=== PATIENT | female | born 1990 | race Caucasian/White ===

== ENCOUNTER 2017-01-05 14:31 | Emergency (ER) | payer OTHER ==
[2017-01-05] MEDS ORDERED: HYDROmorphone 1 MG/ML 1 ML SYRINGE IVP STA (14:45)
[2017-01-05] MEDS ORDERED: LORazepam 2 MG/ML SYRINGE IV STA (14:45)
[2017-01-05] MEDS ORDERED: SODIUM CHLORIDE 0.9% 1,000 ML IV STA (14:46)
[2017-01-05] MEDS ORDERED: ceFAZolin 1,000 MG in DEXTROSE/WATER 1 50ML.BAG IVPB STA (14:50)
[2017-01-05 14:54] VITALS: RESP 18
--- NOTE | 2017-01-05 14:56 | ED ---
Wound/Laceration HPI - General Chief Complaint: Wound/Laceration Stated Complaint: laceration [facility] Time Seen by Provider: 01/05/17 14:33 Source: patient, RN notes reviewed Mode of arrival: wheelchair Limitations: no limitations - History of Present Illness Initial Comments: 26-year-old female presents to the emergency department with a chief complaint of right hand laceration that happened at work. 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 Patient's last tetanus was in the last 5 years. Patient states that her pain is moderate. Patient states that she does not have full sensation of the hand. Patient states that she was brought here immediately following the injury. Patient states about 20 minutes since the injury. Patient denies any other health concerns.Patient denies any recent fever, chills, shortness of breath, chest pain, back pain, abdominal pain , nausea vomiting, numbness or tingling, dysuria or hematuria, constipation or diarrhea, headaches or visual changes, or any other current symptoms. - Related Data Home Medications Medication Instructions Recorded Confirmed No Known Home Medications [No 01/05/17 01/05/17 Known Home Medications] Allergies Allergy/AdvReac Type Severity Reaction Status Date / Time No Known Allergies Allergy Verified 01/05/17 14:46 Review of Systems ROS Statement: Those systems with pertinent positive or pertinent negative responses have been documented in the HPI. ROS Other: All systems not noted in ROS Statement are negative. Past Medical History Past Medical History: Unable to Obtain History of Any Multi-Drug Resistant Organisms: None Reported Past Surgical History: Unable to Obtain Past Psychological History: No Psychological Hx Reported Smoking Status: Current every day smoker Past Alcohol Use History: None Reported Past Drug Use History: None Reported General Exam - General Exam Comments Initial Comments: General: The patient is awake and alert, in no distress, and does not appear acutely ill. Neck: The neck is supple, there is no tenderness. Cardiovascular: There is a regular rate and rhythm. No murmur, rub or gallop is appreciated. Respiratory: Lungs are clear to auscultation, respirations are non-labored, breath sounds are equal. No wheezes, stridor, rales, or rhonchi. Musculoskeletal: Patient has extensive laceration across the first second third and fourth digits to the right hand. There does appear to be loss of sensation as well as a cap refill to the first and second digit that does appear to be partially amputated to complete. second digit cold to touch. Patient does appear to have pressure sensation to the fourth digit however the digit is slow to refill. 3rd digit has extensive laceration and dislocation with gross sensation intact and slow cap refill. Neurological: CN II-XII intact, There are no obvious motor or sensory deficits. Coordination appears grossly intact. Speech is normal. Skin: Skin is warm and dry and no rashes or lesions are noted. Psychiatric: Normal mood and affect. Limitations: no limitations Course Vital Signs 01/05/17 14:35 Temperature 98.0 F Pulse Rate 99 Respiratory 18 Rate Blood Pressure 129/84 O2 Sat by Pulse 100 Oximetry - Reevaluation(s) Reevaluation #1: 01/05/17 15:07 At this time we have started to contact [facility] for a transfer Medical Decision Making - Medical Decision Making 26-year-old female presents emergency Department chief complaint of right hand finger laceration with open comminuted fractures and dislocations with loss of sensation and capillary refill to the hand. At this time this is a emergency for the patient's fingers. [facility] was contacted regarding the transfer and they do accept the transfer. Dr. Cooper was discussed with about the case. At this time we will send the patient by ambulance. She was given antibiotics. Her tetanus is up-to-date. The patient is right-handed. We did inform her of expected outcome. The patient stated that she understood and all questions have been answered. She will go to [facility] for further care. - Radiology Data Radiology results: report reviewed, image reviewed Disposition Clinical Impression: Laceration of right hand involving tendon, Dislocation of right index finger, Amputation finger-complicated, Right handed Disposition: OTHER INSTITUTION NOT DEFINED Condition: Fair Time of Disposition: 15:28 - Out of Hospital Transfer - Req. Specs Out of Hospital Transfer - Requested Specifics: Other Emergency Center ([facility])
--- NOTE | 2017-01-05 15:12 | XR ---
EXAMINATION TYPE: XR hand complete RT DATE OF EXAM: 01/05/2017 3:03 PM CLINICAL HISTORY: Hand injury with pain. TECHNIQUE: Frontal, lateral and oblique images of the right hand are obtained. COMPARISON: None. FINDINGS: There is acute comminuted distracted fracture through mid shaft of the first distal phalanx . There is open acute comminuted displaced fracture through the proximal diaphysis of the second proxim al phalanx. There is open and displaced intra-articular comminuted fracture through the distal meta-epiphysis of the third proximal phalanx. There is acute comminuted intra-articular likely open fracture through the distal meta-epiphysis of t he fourth middle phalanx. Associated soft tissue swelling is seen. No radiodense foreign body is clearly identified. IMPRESSION: There are acute comminuted displaced open fractures through first through fourth fingers in the right hand as detailed above. (Initial encounter open type post traumatic fracture)
[2017-01-05 15:30] LABS: Basophils # (A) 0.1 k/uL (0-0.2); Basophils % (A) 1 %; CH 30.7; Eosinophils # (A) 0.4 k/uL (0-0.7); Eosinophils % (A) 4 %; HCT 38.9 % (34.0-46.0); HDW 2.24; HGB 13.3 gm/dL (11.4-16.0); Luc % (Auto) 3; Lymphocytes # (A) 4.3 k/uL (1.0-4.8); Lymphocytes % (A) 39 %; MCH 30.8 pg (25.0-35.0); MCV 90.6 fL (80.0-100.0); Mean Platelet Volume 8.4; Monocytes # (A) 0.6 k/uL (0-1.0); Monocytes % (A) 6 %; Neutrophils # (A) 5.2 k/uL (1.3-7.7); Neutrophils % (A) 48 %; RDW 13.2 % (11.5-15.5); WBC 10.8 k/uL (3.8-10.6); WBC (Perox) 10.48
[2017-01-05 15:43] VITALS: BP 109/68; PULSE 89; TEMP 98.1
[2017-01-05 15:45] LABS: ALT 26 U/L (9-52); AST 21 U/L (14-36); Alkaline Phosphatase 43 U/L (38-126); Anion Gap 10 mmol/L; Blood Urea Nitrogen 19 mg/dL (7-17); Calcium 9.4 mg/dL (8.4-10.2); Carbon Dioxide 23 mmol/L (22-30); Chloride 106 mmol/L (98-107); Glucose 130 mg/dL (74-99); Non-African American GFR(MDRD) >60 (>60 ml/min/1.73 sqM); Potassium 3.6 mmol/L (3.5-5.1); Sodium 139 mmol/L (137-145); Total Bilirubin 0.5 mg/dL (0.2-1.3); Total Protein 7.7 g/dL (6.3-8.2)
== END 2017-01-05 15:47 | disposition other institution (70) ==
LOC: EC 14:31
DX: S62.521B Displaced fracture of distal phalanx of right thumb, initial encounter for open fracture (principal); S62.610B Displaced fracture of proximal phalanx of right index finger, initial encounter for open fracture; S62.612B Displaced fracture of proximal phalanx of right middle finger, initial encounter for open fracture; S62.624B Displaced fracture of middle phalanx of right ring finger, initial encounter for open fracture; S68.011A Complete traumatic metacarpophalangeal amputation of right thumb, initial encounter; S68.110A Complete traumatic metacarpophalangeal amputation of right index finger, initial encounter; F17.200 Nicotine dependence, unspecified, uncomplicated; W45.8XXA Other foreign body or object entering through skin, initial encounter; Y92.89 Other specified places as the place of occurrence of the external cause; Y99.0 Civilian activity done for income or pay
CPT/HCPCS: 36415; 86900; 86901; 80053; 85025; 86850; 73130; 99284; J2060; J1170; J0690

== ENCOUNTER → 2019-06-22 | Outpatient (CLI) | payer SELFPAY ==
--- NOTE | 2019-06-23 10:28 | USB ---
Reason for exam: clinical finding. Indicated problem(s): pain in both breasts. Physical Findings: Nurse Summary: bilateral redness, warmth and tenderness noted on exam. Bilateral nodularity. All soft, movable. Right breast more noted redness than left (nurse ts). US Breast BILAT Right complete breast ultrasound includes all four quadrants, the retroareolar region and axilla. Finding demonstrates a 8 x 5 x 7mm oval, cystic lesion at 11 o'clock. Left complete breast ultrasound includes all four quadrants, the retroareolar region and axilla. Finding demonstrates no cystic or solid lesion seen. Extremely dense breast tissue bilaterally. No abscess/fluid collection. These results were verbally communicated with the patient and result sheet given to the patient on 06/22/19. ASSESSMENT: Benign, BI-RAD 2 RECOMMENDATION: Surgical consultation of both breasts. Manage patient on a clinical basis. Breast specialist consultation recommended for additional exam, determine if further work up such as punch biopsy would be needed. Alberto at Dr. Nolasco's office called 06/22/19 at 15:55, given update on patient recommendation for surgical consult. Patient states she would like to complete course of antibiotics and see Dr. Nolasco before seeing a surgeon at this time. Alberto made aware that Dr. Pittman stated that often times surgeons would like to have the patient to have completed a course of antibiotics prior to seeing them anyway regarding cases as such. Alberto made aware the patient states she has an appointment with Dr. Nolasco in a couple weeks and will follow up with her at this time. Patient told to contact Dr. Nolasco if symptoms get worse or she has any other problems in the meantime.
== END | disposition home or self-care (01) ==
LOC: RADUSWWP 14:44
PROVIDERS: ATTEND Obstetrics & Gynecology Obstetrics
DX: N64.4 Mastodynia (principal)

== ENCOUNTER 2019-11-09 11:52 | Inpatient (IN) | payer BC ==
[2019-11-09] MEDS ORDERED: LIDOCAINE 0.5% (PF) 5 MG/ML (50 ML SDV) SQ PRN (12:55)
[2019-11-09] MEDS ORDERED: TERBUTALINE 1 MG/ML VIAL SQ PRN (12:55)
[2019-11-09] MEDS ORDERED: OXYTOCIN 10 UNIT/ML 1 ML VIAL IM PRN (12:55)
[2019-11-09] MEDS ORDERED: CARBOPROST TROMETHAMINE 250 MCG/ML 1 ML AMP IM PRN (12:55)
[2019-11-09] MEDS ORDERED: METHYLERGONOVINE 0.2 MG/ML 1 ML AMP IM PRN (12:55)
[2019-11-09] MEDS: OXYTOCIN 30 UNITS/500 ML NS 30 UNIT in SALINE 1 500ML.BAG IV SCH (13:28)
[2019-11-09] MEDS: LACTATED RINGERS 1,000 ML IV SCH ×2 (13:28→16:45)
[2019-11-09 13:43] LABS: Basophils % (A) 0 %; Eosinophils # (A) 0.1 k/uL (0-0.7); Eosinophils % (A) 2 %; HCT 37.3 % (34.0-46.0); HGB 12.7 gm/dL (11.4-16.0); Lymphocytes # (A) 1.8 k/uL (1.0-4.8); Lymphocytes % (A) 23 %; MCH 30.5 pg (25.0-35.0); MCHC 34.1 g/dL (31.0-37.0); MCV 89.5 fL (80.0-100.0); Mean Platelet Volume 10.4; Monocytes # (A) 0.6 k/uL (0-1.0); Monocytes % (A) 7 %; Neutrophils # (A) 4.9 k/uL (1.3-7.7); Neutrophils % (A) 64 %; Platelet Count 152 k/uL (150-450); RBC 4.17 m/uL (3.80-5.40); WBC 7.6 k/uL (3.8-10.6)
--- NOTE | 2019-11-09 16:15 | P.HPOB ---
History of Present Illness H&P Date: 11/09/19 Chief Complaint: IUP at 39 and 3/sevenths weeks, spontaneous rupture of memb [email or web address] This is a pleasant 29-year-old 1 para 0 at 39 and 3/sevenths weeks that presents to labor and delivery with complaints of rupture of membranes. Patient states she noted clear fluid leaking around 11:30 AM. Patient denied contractions at that time. Patient notes good movement. She denies vaginal bleeding. Patient has been receiving routine care with myself since the first trimester. Patient did have consultation with Dr. Garcia for breast rash negative mammogram and negative biopsy with Dr. Garcia. Patient was seen by dermatology and multiple steroid creams were used with no relief of rash. Otherwise her care has been uneventful. On blood work she has a blood type of A+, rubella status immune, hepatis B surface antigen negative, HIV negative, RPR nonreactive, GBS is negative. Review of Systems Constitutional: Denies chills, Denies fatigue, Denies fever Ears, nose, mouth and throat: Denies headache Cardiovascular: Reports leg edema Respiratory: Denies dyspnea Gastrointestinal: Denies constipation, Denies diarrhea, Denies nausea, Denies vomiting Genitourinary: Reports Past Medical History Past Medical History: No Reported History History of Any Multi-Drug Resistant Organisms: None Reported Past Surgical History: Unable to Obtain Additional Past Surgical History / Comment(s): right pointer finger surgery 2017 Past Anesthesia/Blood Transfusion Reactions: No Reported Reaction Past Psychological History: No Psychological Hx Reported Smoking Status: Never smoker Past Alcohol Use History: None Reported Past Drug Use History: None Reported - Past Family History Mother Family Medical History: No Reported History Medications and Allergies Home Medications Medication Instructions Recorded Confirmed Type Pnv,Calcium 72/Iron/Folic Acid 1 each PO DAILY 11/09/19 11/09/19 History [ Plus Tablet] Allergies Allergy/AdvReac Type Severity Reaction Status Date / Time No Known Allergies Allergy Verified 01/05/17 14:46 Exam Osteopathic Statement: *. No significant issues noted on an osteopathic structural exam other than those noted in the History and Physical/Consult. Vital Signs Temp Pulse Resp BP 11/09/19 13:15 96.4 F L 78 18 139/84 11/09/19 13:00 96.7 F L 86 16 129/85 Intake and Output 11/09/19 11/09/19 11/09/19 06:59 14:59 22:59 Other: # Voids 1 Weight 89.811 kg Targeted physical exam is performed on this date in general this a well- nourished well-developed female in obvious distress from contractions. Patient's breathing is noted to be nonlabored, heart has regular rate and rhythm, abdomen is noted to be gravid and appropriate for gestational age, heart tones are noted to be category 1 and she is violeta every 2 minutes. On cervical exam she is 1/80/-3 amniotomy is performed and clear fluid is obtained. On admission she did had a positive amni- sure Results Result Diagrams: 11/09/19 13:12 Assessment and Plan (1) Term Current Visit: Yes Status: Acute Code(s): Z34.90 - ENCNTR FOR SUPRVSN OF NORMAL , UNSP, UNSP TRIMESTER SNOMED Code(s): 56559945 (2) SROM (spontaneous rupture of membranes) Current Visit: Yes Status: Acute Code(s): VED4859 - SNOMED Code(s): 969016267 Plan: Patient is admitted to labor and delivery and Pitocin induction of labor was begun given rupture of membranes. Pitocin is started per hospital protocol. Patient is offered Stadol versus epidural for analgesia, she states understanding and will consider each.
[2019-11-09] MEDS ORDERED: ROPIVACAINE 5MG/ML 20ML VIAL ONE (16:49)
[2019-11-09] MEDS ORDERED: SODIUM CHLORIDE 0.9% 100 ML BAG ONE (16:49)
[2019-11-09] MEDS ORDERED: fentaNYL (PF) 50 MCG/ML 5 ML AMP ONE (16:49)
[2019-11-09] MEDS ORDERED: LACTATED RINGERS 1,000 ML IV ONE (22:33)
[2019-11-09] MEDS ORDERED: CITRIC ACID-SODIUM CITRATE 15 ML CUP PO ONE (22:33)
[2019-11-09] MEDS ORDERED: MORPHINE SULFATE (PF) 0.3 MG/0.3 ML SYR ONE (23:04)
[2019-11-09] MEDS ORDERED: PROPOFOL 10 MG/ML 20 ML VIAL IV ONE (23:04)
[2019-11-09] MEDS ORDERED: KETOROLAC 30 MG/ML 1 ML VIAL ONE (23:04)
[2019-11-09] MEDS ORDERED: DEXAMETHASONE SOD PHOS (MDV) 100 MG/10 ML VIAL ONE (23:04)
[2019-11-09] MEDS ORDERED: METHYLERGONOVINE 0.2 MG/ML 1 ML AMP ONE (23:04)
[2019-11-09] MEDS ORDERED: SUCCINYLCHOLINE CHLORIDE 100 MG/5 ML SYR IV ONE (23:04)
[2019-11-09] MEDS ORDERED: ONDANSETRON 4 MG/2 ML VIAL ONE (23:04)
[2019-11-09] MEDS ORDERED: diphenhydrAMINE 50 MG/ML 1 ML VIAL ONE (23:04)
[2019-11-09] MEDS ORDERED: AMPICILLIN 1,000 MG in SODIUM CHLORIDE 0.9% 50 ML IVPB SCH (23:30)
[2019-11-09] MEDS ORDERED: diphenhydrAMINE 50 MG/ML 1 ML VIAL IVP PRN (23:32)
[2019-11-09] MEDS ORDERED: ONDANSETRON 4 MG/2 ML VIAL IVP PRN (23:32)
[2019-11-09] MEDS ORDERED: NALOXONE 0.4 MG/ML 1 ML VIAL IV PRN (23:32)
[2019-11-09] MEDS ORDERED: KETOROLAC 30 MG/ML 1 ML VIAL IVP PRN (23:32)
[2019-11-09] MEDS ORDERED: MORPHINE SULFATE 2 MG/ML SYRINGE IVP PRN (23:32)
--- NOTE | 2019-11-10 00:06 | P.OP ---
Date of Procedure: 11/10/19 Preoperative Diagnosis: 39-3/7 weeks intrauterine , arrest of dilation at 4 cm Postoperative Diagnosis: Same, liveborn male , nuchal cord 2, left occiput transverse position Procedure(s) Performed: Primary low transverse section Anesthesia: ABDIRAHMAN Surgeon: Mary Beth Mercado Interface Engineer #1: Radha Cordon Estimated Blood Loss (ml): 800 IV fluids (ml): 1,000 Urine output (ml): 400 Pathology: none sent Condition: stable Disposition: PACU Indications for Procedure: Arrest of dilation at 4 cm Operative Findings: Liveborn male , scores 9 and 9 at one and 5 minutes, left occiput transverse position, nuchal cord 2 Description of Procedure: Patient is brought to the operating suite where the epidural was "topped off". Baron catheter placed to direct drainage, Bicitra given, antibiotics given. She's placed in the dorsal supine position with left lateral uterine displacement. The appropriate timeout is performed to assure proper patient and procedural identification. Abdomen is prepped and draped in usual sterile fashion. Upon checking level of analgesia, it was noted to be inadequate. Decision was made to proceed with general anesthetic. This was administered without difficulty per the anesthesia staff. A low transverse skin incision is made in this is carried down to the subcutaneous tissue to the fascia. Fascia is isolated, scored, extended bilaterally with curved Stone scissors. Peritoneum is next identified and incised, there is no bowel or bladder involvement. Bladder blade is placed of the bladder and at all times the bladder is well from the operative field to avoid bladder and/or ureteral injury. A low transverse uterine incision is made in this is extended with blunt dissection. The 's head is delivered in the left occiput transverse position. There is a nuchal cord 2 that is reduced. The oropharynx and nasopharynx are bulb suctioned. Patient is officially delivered of a liveborn male infant at 2321 hours. Umbilical cord is doubly clamped and ligated, he is handed to waiting nurses for evaluation where scores of 9 and 9 at one and 5 minutes respectively are given. The placenta delivers manually, it is inspected and noted to be intact with trivascular cord at 2322 hours. The uterus is quite soft despite the administration of oxytocin and therefore Methergine is given as well. It is massaged. It is swept clean with a sterile sponge to avoid any retained products of conception. The edges are grasped with Allen clamps. The uterus is closed in a two-step fashion, first layer running locking with 0 Vicryl, second layer imbricated with 0 Vicryl as well. Excellent reapproximation is noted. Tubes and ovaries appear normal to inspection. There are known uterine anomalies appreciated. The abdomen is suctioned with suction on guard and the uterus is placed back into the abdominal cavity. Bilateral gutters are inspected and cleaned. Peritoneum is allowed to close by secondary intention. Fascia is closed in a running locking stitch of 0 Vicryl. Over ligation in the midline is performed. Subcutaneous tissue is irrigated, noted to be clean and dry. It is reapproximated with 3-0 Vicryl in a running fashion. 4-0 undyed Monocryl is used for final skin closure in a subcuticular manner. Mastisol and Steri-Strips are applied to the wound. Dressing is applied. Baron is noted to be draining clear urine, 400 mL total. Total estimated blood loss 800 mL, fluid replacement 1000 mL's. weight is 3670 g or 8 lbs. 1 oz. There is a fair amount of Noted on the scalp. All sponge needle and instrument counts are correct at the end of the procedure. Patient is requesting circumcision for her son.
[2019-11-10] MEDS ORDERED: diphenhydrAMINE 50 MG CAP PO PRN (00:07)
[2019-11-10] MEDS ORDERED: METOCLOPRAMIDE 5 MG/ML 2 ML VIAL IVP PRN (00:07)
[2019-11-10] MEDS ORDERED: ACETAMINOPHEN TAB 325 MG TAB PO PRN (00:07)
[2019-11-10] MEDS ORDERED: diphenhydrAMINE 25 MG CAP PO PRN (00:07)
[2019-11-10] MEDS ORDERED: NALOXONE 0.4 MG/ML 1 ML VIAL IV PRN (00:07)
[2019-11-10] MEDS ORDERED: ZOLPIDEM 5 MG TAB PO PRN (00:07)
[2019-11-10] MEDS ORDERED: diphenhydrAMINE 50 MG/ML 1 ML VIAL IVP PRN ×2 (00:07)
[2019-11-10] MEDS ORDERED: ONDANSETRON 4 MG/2 ML VIAL IVP PRN (00:07)
[2019-11-10] MEDS ORDERED: LACTATED RINGERS 1,000 ML IV SCH (00:15)
[2019-11-10] MEDS: KETOROLAC 30 MG/ML 1 ML VIAL IVP PRN ×2 (08:25→13:42)
[2019-11-10] MEDS: SENNOSIDES-DOCUSATE SODIUM 1 EACH TAB PO SCH ×2 (08:26→19:39)
[2019-11-10] MEDS: SIMETHICONE 80 MG CHEWABLE PO PRN (08:27)
--- NOTE | 2019-11-10 08:42 | P.PNOBGPC ---
Subjective - Subjective Principal diagnosis: POD 1 LTCS Interval history: Patient did well overall overnight. She did have an episode of vaginal bleeding and was given Methergine status post . Patient rates her pain is controlled this morning her Baron was just discontinued prior to entering the room. She is tolerating clear liquids without nausea or vomiting. Patient reports: Reports appetite normal, Reports pain well controlled : doing well Objective - Vital Signs Latest vital signs: Vital Signs Temp Pulse Resp BP Pulse Ox 11/10/19 06:00 16 11/10/19 04:32 98 11/10/19 04:00 16 11/10/19 02:32 14 11/10/19 02:04 96.8 F L 88 16 131/76 11/10/19 01:34 97.7 F 88 16 128/73 11/10/19 01:04 97.1 F L 86 16 130/64 11/10/19 00:49 97.6 F 90 16 138/65 11/10/19 00:34 96.7 F L 16 151/77 11/10/19 00:32 16 98 11/10/19 00:04 97.1 F L 112 H 16 113/69 96 11/09/19 23:32 16 100 11/09/19 13:15 96.4 F L 78 18 139/84 11/09/19 13:00 96.7 F L 86 16 129/85 Intake and Output 11/09/19 11/10/19 11/10/19 22:59 06:59 14:59 Output Total 1300 Balance -1300 Output: Urine 1300 Other: Voiding Method Indwelling Catheter - Exam Extremities: Present: normal, edema Abdomen: Present: normal appearance Incision: Present: normal Uterus: Present: normal Assessment and Plan (1) Term Current Visit: Yes Status: Acute Code(s): Z34.90 - ENCNTR FOR SUPRVSN OF NORMAL , UNSP, UNSP TRIMESTER SNOMED Code(s): 04911333 (2) SROM (spontaneous rupture of membranes) Current Visit: Yes Status: Acute Code(s): AYM9322 - SNOMED Code(s): 293173206 (3) Arrest of dilation, delivered, current hospitalization Current Visit: Yes Status: Acute Code(s): O62.1 - SECONDARY UTERINE INERTIA SNOMED Code(s): 17571277 (4) S/P section Current Visit: Yes Status: Acute Code(s): Z98.891 - HISTORY OF UTERINE SCAR FROM PREVIOUS SURGERY SNOMED Code(s): 374107974 Plan: Patient is doing well status post primary for arrest of dilation, asynclitic presentation. Will increase ambulation, await spontaneous void as Baron was just removed. Advance diet today to regular, and continue routine postoperative care
[2019-11-10] MEDS: HYDROcodone/APAP 5-325MG 1 EACH TAB PO PRN ×3 (09:56→22:04)
[2019-11-10 10:04] LABS: Basophils % (A) 0 %; Eosinophils % (A) 0 %; HGB 11.3 gm/dL (11.4-16.0); Lymphocytes # (A) 1.3 k/uL (1.0-4.8); Lymphocytes % (A) 9 %; MCH 29.7 pg (25.0-35.0); MCHC 33.2 g/dL (31.0-37.0); MCV 89.5 fL (80.0-100.0); Mean Platelet Volume 10.7; Monocytes # (A) 0.6 k/uL (0-1.0); Monocytes % (A) 5 %; Neutrophils # (A) 11.4 k/uL (1.3-7.7); Neutrophils % (A) 84 %; Platelet Count 176 k/uL (150-450); RDW 13.3 % (11.5-15.5); WBC 13.5 k/uL (3.8-10.6)
[2019-11-11] MEDS: KETOROLAC 30 MG/ML 1 ML VIAL IVP PRN (01:25)
[2019-11-11] MEDS: HYDROcodone/APAP 5-325MG 1 EACH TAB PO PRN ×5 (04:06→22:34)
[2019-11-11] MEDS: IBUPROFEN 600 MG TAB PO PRN ×3 (08:09→20:48)
[2019-11-11] MEDS: SENNOSIDES-DOCUSATE SODIUM 1 EACH TAB PO SCH ×2 (08:09→22:05)
--- NOTE | 2019-11-11 08:59 | P.DS ---
Providers Date of admission: 11/09/19 12:35 Expected date of discharge: 11/11/19 Attending physician: Autumn Nolasco Primary care physician: Stated None - Discharge Diagnosis(es) (1) Term Current Visit: Yes Status: Acute (2) SROM (spontaneous rupture of membranes) Current Visit: Yes Status: Acute (3) Arrest of dilation, delivered, current hospitalization Current Visit: Yes Status: Acute (4) S/P section Current Visit: Yes Status: Acute Hospital Course: This pleasant 29-year-old 1 para 0 presented to labor and delivery on 11/09 with complaints of spontaneous rupture of membranes. Patient stated her membranes ruptured around 11:30 that day. Patient noted the fluid to be clear in nature. Patient denied contractions at the time of rupture. Patient presented to the hospital and was admitted. Patient had been receiving routine care with myself and has been essentially uncomplicated. For further details on the care or her complete history and physical please see the dictated history and physical. Patient was started on Pitocin augmentation of labor and made minimal change by 11:00 PM patient was noted to be only 4 cm with increasing But noted. The decision at that time was to take the patient for primary secondary to arrest of descent and dilation. Patient stated understanding and was performed under general anesthesia. Her epidural was unable to be used secondary to patient discomfort. Patient delivered a liveborn male at 2321, weight of 8 lbs. 1 oz. with Apgars of 99 at one and 5 minutes respect weight. Patient's course has been complicated by poor pain control but it is improved on this postop day #2. On this postop day #2 she is ambulating and voiding without difficulty. She is tolerating a regular diet without nausea or vomiting, she states her pain is better on oral Pine. She is breast-feeding without difficulty. She does wish to discharge home later today. Patient Condition at Discharge: Good Plan - Discharge Summary New Discharge Prescriptions: No Action Pnv,Calcium 72/Iron/Folic Acid [ Plus Tablet] 1 each PO DAILY Discharge Medication List Pnv,Calcium 72/Iron/Folic Acid [ Plus Tablet] 1 each PO DAILY 11/09/19 [History] Follow up Appointment(s)/Referral(s): Autumn Nolasco DO [Doctor of Osteopathic Medicine] - 2 Weeks Patient Instructions/Handouts: (DC), (GEN) Discharge Disposition: HOME SELF-CARE
[2019-11-11] MEDS: SIMETHICONE 80 MG CHEWABLE PO PRN (20:41)
[2019-11-11] MEDS: OXYTOCIN 30 UNITS/500 ML NS 30 UNIT in SALINE 1 500ML.BAG IV SCH (22:05)
[2019-11-12] MEDS: IBUPROFEN 600 MG TAB PO PRN ×2 (02:32→08:21)
[2019-11-12] MEDS: HYDROcodone/APAP 5-325MG 1 EACH TAB PO PRN ×2 (05:35→12:25)
[2019-11-12] MEDS: SENNOSIDES-DOCUSATE SODIUM 1 EACH TAB PO SCH (08:21)
[2019-11-12 09:22] VITALS: BP 127/74; PULSE 84; RESP 16; TEMP 97.8
== END 2019-11-12 12:40 | disposition home or self-care (01) | DRG 788 ==
LOC: FBPOP 11:52 → 4FBP 12:35
PROVIDERS: ADMIT Obstetrics & Gynecology Obstetrics; ATTEND Obstetrics & Gynecology Obstetrics
PROC: 3E033VJ Introduction of Other Hormone into Peripheral Vein, Percutaneous Approach (ICD-10-PCS; 2019-11-09)
PROC: 10D00Z1 Extraction of Products of Conception, Low, Open Approach (ICD-10-PCS; principal; 2019-11-10)
DX: O62.1 Secondary uterine inertia (principal); O62.0 Primary inadequate contractions; O69.81X0 Labor and delivery complicated by cord around neck, without compression, not applicable or unspecified; Z37.0 Single live birth; Z3A.39 39 weeks gestation of pregnancy
CPT/HCPCS: 59025; 84112; 85025; 86850; 86900; 86901; 99213

== ENCOUNTER → 2023-10-01 | Outpatient (CLI) | payer BC ==
--- NOTE | 2023-10-01 07:43 | MM ---
Reason for Exam: Clinical finding. Baseline mammogram. Indicated Problems: Lump or thickening of the left side for 1 Month(s). Patient History: Menarche at age 12. First Full-Term at age 29. Late child-bearing (after 29). Premenopausal. Patient has history of breast feeding. Prior Study Comparison: Patient's first Mammogram. No prior studies available for comparison. Tissue Density: The breast tissue is heterogeneously dense. This may lower the sensitivity of mammography. Findings: Analyzed By CAD. Probable marker left upper outer quadrant with underlying 2.5 cm partially obscured mass. Diffuse round and punctate calcifications are present bilaterally. No other suspicious mass or other discrete abnormality is seen. Slightly asymmetric lymph node left axilla. Overall Assessment: Incomplete: need additional imaging evaluation, BI-RAD 0 Management: Diagnostic Breast Ultrasound of the left breast. Electronically signed and approved by: Alejandra Shahid M.D. Radiologist
--- NOTE | 2023-10-01 09:15 | USB ---
Reason for Exam: Clinical finding. Patient History: Menarche at age 12. First Full-Term at age 29. Late child-bearing (after 29). Premenopausal. Patient has history of breast feeding. Technique: Method: Whole Breast Handheld. Findings: The whole breast of the left breast, the area of palpable concern of the left breast, the axilla of the left breast and the retroareolar of the left breast were scanned. A complete US of all four quadrants of the breast , axilla, and retro-areolar region were reviewed. There is a lobulated solid hypoechoic mass at the patient's 1:00 palpable site, 8 cm from the nipple. No internal vascularity is identified. There is posterior through transmission. Tissue sampling is recommended. Dense tissues are prominent throughout. No other solid or cystic lesion. There is a prominent but nonenlarged lymph node in the left axilla measuring 1.4 x 0.8 x 0.9 cm. An area of nodular cortical thickening measures up to 4 mm. This lymph node is indeterminate and should be reassessed at the time of biopsy to determine if biopsy is needed here as well. Overall Assessment: Suspicious, BI-RAD 4 Management: Ultrasound Core Biopsy of the left breast. Potential 2 site biopsy. Dominant palpable mass at 1:00. The axilla should be rescanned to reassess if the lymph node should be biopsied. There is an area of slight nodular cortical thickening but the lymph node itself is not enlarged. Results were given to the patient verbally at the time of exam. Electronically signed and approved by: Alejandra Shahid M.D. Radiologist
== END | disposition home or self-care (01) ==
LOC: RADMAMWWP 07:02
PROVIDERS: ATTEND Family Medicine
DX: R92.333 Mammographic heterogeneous density, bilateral breasts (principal); R92.1 Mammographic calcification found on diagnostic imaging of breast; N63.20 Unspecified lump in the left breast, unspecified quadrant
CPT/HCPCS: 77062; 77066

== ENCOUNTER → 2023-10-21 | Day surgery (SDC) | payer BC ==
--- NOTE | 2023-10-28 13:24 | USB ---
Prior Study Comparison: 10/01/2023 Bilateral MG 3D diag mammo w/cad [facility], [facility]. Pathology Description: Location: 1 o'clock. Marker Left Behind. Needle Type: Mammotome Cores: 3 Skin Nicks: 1 Gauge: 12 Probable hematoma The procedure of ultrasound guided core biopsy was explained to the patient. Benefits, alternatives, and risks were discussed. An informed consent was then obtained. The patient was placed in supine positioning for imaging and for the procedure. The overlying skin was prepped and draped in usual sterile fashion. Lidocaine buffered with bicarbonate was used as anesthetic into the skin and subcutaneous tissue up to area of concern in the left breast. A adriana was made with surgical scalpel. Under ultrasound guidance, a 12-gauge vacuum assisted biopsy gun device was used to obtain 3 core samples. Following this, a biopsy clip was left in lesion. The patient tolerated the procedure well without any immediate complication. The patient was kept in the radiology department for short stay after the procedure and then discharged home in stable condition. Postprocedure mammogram was not performed: Ultrasound Imaging was utilized for clip placement verification. Impression: Successful, uncomplicated ultrasound guided core biopsy of area of concern in the left breast, full pathology results to follow. Pathology Results: Result: Malignant, Invasive ductal carcinoma. LEFT BREAST, ONE O'CLOCK, ULTRASOUND GUIDED CORE BIOPSY: Invasive high grade ductal carcinoma, Grade 3 (See Surgical Pathology Cancer Case Summary and Comment). Overall Assessment: Malignant Management: Surgical Consultation of the left breast. Electronically signed and approved by: Benny Balbuena DO
== END ==
LOC: RADUSWWP 10:11
PROVIDERS: ATTEND Family Medicine
DX: C50.412 Malignant neoplasm of upper-outer quadrant of left female breast (principal); C50.212 Malignant neoplasm of upper-inner quadrant of left female breast
CPT/HCPCS: 88305; 88342; 88341; 19083; A4648

== ENCOUNTER → 2023-11-02 | Outpatient (CLI) | payer BC ==
--- NOTE | 2023-11-04 08:21 | BMR ---
EXAM DATE: 11/03/2023 EXAM DESCRIPTION: MRI-Breast Bilat (W/WO Contrast) INDICATION: Recent diagnosis of left breast cancer, to evaluate disease extent COMPARISON: Comparison was made to prior relevant imaging available in PACS TECHNIQUE: Multiplanar multisequence breast MRI was performed prior to and after administration of 6.5 mL of Gadavist intravenously. Post processing was performed utilizing a [employer] workstation. FINDINGS: There is marked, symmetric background parenchymal enhancement in breasts that are composed of heterogeneous fibroglandular tissue. RIGHT BREAST: Review of the dynamic contrast enhanced series shows no rapidly enhancing masses, suspicious enhancement patterns or other abnormalities. The T2 weighted series show no abnormality. LEFT BREAST: Review of the dynamic contrast enhanced series demonstrates 2.8 x 2.4 x 2.6 cm T1 and T2 intermediate signal enhancing mass in the left breast posterior depth at 1 o'clock position consistent with biopsy-proven malignancy (series 504, image 53 and series 601, image 56). Small signal void from biopsy clip is seen abutting the inferior aspect of the mass (series 502, image 453 and series 601, image 52). Immediately adjacent abutting the inferolateral aspect of the dominant mass, there is a 0.5 cm circumscribed T2 hyperintense enhancing mass (series 504, image 447 and series 601, image 49) which likely represents intramammary lymph node rather than malignant satellite nodule. Otherwise, review of the dynamic contrast enhanced series shows no additional abnormalities. The T2 weighted series show no abnormality. There is a prominent left axillary lymph node with borderline cortical thickening up to 0.5 cm (series 504, image 595). This lymph nodes appears slightly more pronounced when compared to other left axillary lymph nodes. IMPRESSION: Right breast: BI-RADS Category 1-negative. 1. No MRI evidence of malignancy. Recommendation: MRI screening in 1 year Left breast: BI-RADS Category 1-cglchm-idezaf malignancy. 1. A 2.8 x 2.4 x 2.6 cm T1-T2 intermediate signal enhancing mass in the left breast at 1 o'clock position posterior depth consistent with biopsy-proven malignancy. 2. A 0.5 cm well-circumscribed T2 hyperintense enhancing mass immediately abutting the inferolateral aspect of the dominant mass likely represents intramammary lymph node rather than satellite nodule. 3. Prominent left axillary lymph node with borderline cortical thickening. Consider ultrasound-guided biopsy for definitive diagnosis. OVERALL ASSESSMENT- BI-RADS 6 MTDD
== END | disposition home or self-care (01) ==
LOC: RADMRIMAIN 21:30
PROVIDERS: ATTEND Internal Medicine Hematology & Oncology
DX: C50.412 Malignant neoplasm of upper-outer quadrant of left female breast (principal)
CPT/HCPCS: 77049; A9585

== ENCOUNTER → 2023-11-03 | Outpatient (CLI) | payer BC ==
--- NOTE | 2023-11-04 12:45 | CA ---
Transthoracic Echo Report Name: Paige Solano Age: 33 Gender: F : 1990 Exam Date: 11/03/2023 18:19 Exam Location: [facility] Ht (in): 64 Wt (lb): 147 Ordering Physician: Elizabeth Cooper MD Attending/Referring Phys: Registered Clinical Dietitian Waylon Mcdermott RDCS Procedure CPT: Indications: Z01.818 Pre-chemo; C50.412 Breast cancer Cardiac Hx: Technical Quality: Fair Contrast 1: Total Dose (mL): Contrast 2: Total Dose (mL): MEASUREMENTS (Male / Female) Normal Values 2D ECHO LV Diastolic Diameter PLAX 4.6 cm 4.2 - 5.9 / 3.9 - 5.3 cm LV Systolic Diameter PLAX 3.4 cm IVS Diastolic Thickness 0.6 cm 0.6 - 1.0 / 0.6 - 0.9 cm LVPW Diastolic Thickness 0.9 cm 0.6 - 1.0 / 0.6 - 0.9 cm LV Relative Wall Thickness 0.3 Aortic Root Diameter 3.4 cm LA Systolic Diameter LX 3.8 cm 3.0 - 4.0 / 2.7 - 3.8 cm LA Volume 36.2 cm??? 18 - 58 / 22 - 52 cm??? LA Volume Index 20.7 cm???/m??? 16 - 28 cm???/m??? DOPPLER AV Peak Velocity 116.3 cm/s AV Peak Gradient 5.4 mmHg AV Mean Velocity 80.3 cm/s AV Mean Gradient 2.9 mmHg AV Velocity Time Integral 23.0 cm LVOT Peak Velocity 103.9 cm/s LVOT Peak Gradient 4.3 mmHg LVOT Velocity Time Integral 20.6 cm Mitral E Point Velocity 60.7 cm/s Mitral A Point Velocity 45.6 cm/s Mitral E to A Ratio 1.3 MV Deceleration Time 152.4 ms MV E' Velocity 10.8 cm/s Mitral E to MV E' Ratio 5.6 TR Peak Velocity 187.6 cm/s TR Peak Gradient 14.1 mmHg PV Peak Velocity 81.9 cm/s PV Peak Gradient 2.7 mmHg FINDINGS Left Ventricle Left ventricular ejection fraction is estimated at 55-60 %. No obvious regional wall motion abnormality. No significant LVH Right Ventricle Normal right ventricular size and function. Right Atrium Normal right atrial size. Left Atrium Normal left atrial size. Mitral Valve No mitral regurgitation. Aortic Valve Aortic valve not well visualized. Tricuspid Valve Trace to mild tricuspid regurgitation. Pulmonic Valve Structurally normal pulmonic valve. Pericardium Normal pericardium. Aorta Normal size aortic root and proximal ascending aorta. CONCLUSIONS Normal LV size and wall thickness. LVEF estimated at 55-60% No obvious regional wall motion abnormality No significant valvular dysfunction Previewed by: Dr Scout Monreal (Electronically Signed) Final Date: 04 November 2023 12:44
== END | disposition home or self-care (01) ==
LOC: RADECHMAIN 17:38
PROVIDERS: ATTEND Internal Medicine Hematology & Oncology
DX: Z01.818 Encounter for other preprocedural examination (principal); C50.412 Malignant neoplasm of upper-outer quadrant of left female breast
CPT/HCPCS: 93306

== ENCOUNTER → 2023-11-04 | Outpatient (CLI) | payer BC ==
--- NOTE | 2023-11-04 09:55 | USB ---
Reason for Exam: Clinical finding. Patient History: Menarche at age 12. First Full-Term at age 29. Late child-bearing (after 29). Premenopausal. Patient has history of breast feeding. Breast cancer, left, age 33. 10/21/2023, Malignant US biopsy breast VAD LT on the left side. Technique: Method: Targeted. Prior Study Comparison: 10/01/2023 Bilateral MG 3D diag mammo w/cad [facility]ELA, [facility]. 10/01/2023 Left US breast LT, [facility]. Findings: The axilla of the left breast was scanned. Targeted left axillary ultrasound again shows prominent but nonenlarged lymph nodes. However, one of these shows slight nodular cortical thickening measuring up to 4 to 6 mm. Given questionable findings on MRI, we will attempt tissue sampling of the area of nodular thickening. Overall Assessment: Known biopsy proven malignancy, BI-RAD 6 Management: Ultrasound Core Biopsy of the left breast. Attempt at ultrasound-guided core needle biopsy of an area of slight nodular cortical thickening of a nonenlarged left axillary lymph node. Electronically signed and approved by: Alejandra Shahid M.D. Radiologist
--- NOTE | 2023-11-04 10:26 | CT ---
EXAMINATION TYPE: CT ChestAbdPelvis w con CT DLP: 618.30 mGycm, Automated exposure control for dose reduction was used. DATE OF EXAM: 11/04/2023 8:56 AM COMPARISON: Ultrasound 10/21/2023. CLINICAL INDICATION:Female, 33 years old with history of C50.412 BREAST CANCER; [facility], Newly diagnosed breast ca, observe for mets Technique: CT ChestAbdPelvis w con; Multiple axial images were obtained. Two-dimensional coronal and sagittal reconstructions were obtained. Contrast used:100 mL of Isovue 300 with IV Contrast, Oral contrast used: with Oral Contrast Findings: CHEST: LUNGS/ PLEURA: No focal consolidation, pneumothorax or pleural effusion. AIRWAY: Patent and unremarkable. HEART: Size within normal limits. MEDIASTINUM: No gross evidence of adenopathy. VASCULATURE: No aortic aneurysm. MUSCULOSKELETAL: No acute osseous abnormalities. SOFT TISSUES/LYMPH NODES: Dominant left breast mass as seen on ultrasound measuring 23 x 25 mm series 3 image 21 in the left breast. Smaller nodular density near the dominant mass series 3 image 22 renetta uring 4 mm. Within the left axilla there are no greater than 1.0 cm in short axis lymph nodes. LOWER NECK: No significant findings. ABDOMEN: ABDOMEN LIVER: Unremarkable GALLBLADDER AND BILE DUCTS: Unremarkable. PANCREAS: Unremarkable. SPLEEN: Unremarkable. ADRENAL GLANDS: Unremarkable. KIDNEYS AND URETERS: No evidence of hydronephrosis or renal calculus. The ureters are unremarkable. PELVIS BLADDER: Unremarkable REPRODUCTIVE: Unremarkable. ABDOMEN & PELVIS STOMACH AND BOWEL: No evidence of bowel obstruction. PERITONEUM: No evidence of pneumoperitoneum or free fluid. VASCULATURE: No evidence of aortic aneurysm. MUSCULOSKELETAL: No acute osseous abnormalities LYMPH NODES: No gross evidence for lymphadenopathy. SOFT TISSUE/ABDOMINAL WALL: Unremarkable IMPRESSION: Known left breast mass without definitive CT evidence for metastatic disease at this time. The left a xillary lymph nodes are within normal limits by CT criteria, this does not exclude microscopic metast atic disease to these nodes. No additional evidence for metastatic disease.
--- NOTE | 2023-11-04 11:19 | NM ---
EXAMINATION TYPE: NM bone scan whole body DATE OF EXAM: 11/04/2023 COMPARISON: NONE CLINICAL INDICATION: Female, 33 years old with history of C50.412 BREAST CANCER; Delayed whole-body scanning was performed following the injection of 22.5 mCi Tc 99m MDP. Images acq uired 3 hours post injection. FINDINGS: There is symmetric uptake bilaterally. Atherosclerosis seen from a CT scan about the SI joints sacroi liitis and likely accounts for the mild increased uptake bilateral sacrum IMPRESSION: No diagnostic evidence of metastasis bone scanning
== END | disposition home or self-care (01) ==
LOC: RADNMMAIN 05:50
PROVIDERS: ATTEND Internal Medicine Hematology & Oncology
DX: C50.412 Malignant neoplasm of upper-outer quadrant of left female breast (principal)
CPT/HCPCS: 76642; 71260; 74177; 78306; A9503; Q9967

== ENCOUNTER 2023-11-06 08:50 | Day surgery (SDC) | payer BC ==
[2023-11-06 09:25] VITALS: RESP 16; TEMP 98
[2023-11-06 11:01] VITALS: BP 123/67; PULSE 70
--- NOTE | 2023-11-06 11:47 | US ---
ULTRASOUND GUIDED FNA LEFT AXILLA LYMPH NODE BIOPSY: CLINICAL HISTORY: Left axilla lymph node FINDINGS: The procedure was explained to the patient. The risks, complications, benefits and alternatives were discussed and any questions were answered. Informed consent was obtained. Patient was placed supin e on the ultrasound table and prepped and draped in the usual sterile fashion. Utilizing a 18-gauge core biopsy needle, 7 passes were made into the requested left axillary lymph node. Surgical clip sondra maite.. Patient was stable throughout the procedure. Pathology is pending. All elements of maximal barrier technique were utilized. IMPRESSION: 1. Successful ultrasound guided core biopsy left axillary lymph node.
== END 2023-11-06 10:32 | disposition home or self-care (01) ==
LOC: RADPROMAIN 08:50
PROVIDERS: ATTEND Internal Medicine Hematology & Oncology
DX: R59.0 Localized enlarged lymph nodes (principal)
CPT/HCPCS: 88305; 88342; 88341; 76942; 38505; A4648

== ENCOUNTER 2023-11-09 10:55 | Day surgery (SDC) | payer BC ==
[2023-11-05 14:20] VITALS: BMI 25.2
--- NOTE | 2023-11-09 07:36 | P.GSHP ---
History of Present Illness H&P Date: 11/09/23 Chief Complaint: Left breast cancer 33-year-old female presenting today for Port-A-Cath placement. Patient is starting neoadjuvant chemotherapy in the near future. Patient with recent findings of left-sided breast cancer. Has had extensive workup. Past Medical History Past Medical History: Cancer Additional Past Medical History / Comment(s): left breast cancer dx Oct 2023, frequent headaches. History of Any Multi-Drug Resistant Organisms: None Reported Past Surgical History: Section Additional Past Surgical History / Comment(s): hx of hand injury & right pointer finger surgery 2017, skin biopsy of rash-neg, Breast biopsy - positive Oct 2023, Past Anesthesia/Blood Transfusion Reactions: No Reported Reaction Past Psychological History: No Psychological Hx Reported Smoking Status: Former smoker, Vaper Past Alcohol Use History: None Reported Additional Past Alcohol Use History / Comment(s): quit smoking 2019., currently vapes. Past Drug Use History: None Reported - Past Family History Mother Family Medical History: No Reported History Medications and Allergies Home Medications Medication Instructions Recorded Confirmed Type No Known Home Medications 10/02/23 11/05/23 History Allergies Allergy/AdvReac Type Severity Reaction Status Date / Time No Known Allergies Allergy Verified 11/05/23 13:55 Surgical - Exam Physical exam: General: Well-developed, well-nourished HEENT: Normocephalic, sclerae nonicteric Abdomen: Nontender, nondistended Extremities: No edema Neuro: Alert and oriented Assessment and Plan (1) Breast cancer, left Narrative/Plan: 33-year-old female with left-sided breast cancer. Will proceed with Port-A-Cath placement at this time. Risks of bleeding, infection, DVT, pneumothorax, catheter malfunction, anesthesia related complications were discussed. The patient understands and wishes to proceed. Status: Acute Code(s): C50.912 - MALIGNANT NEOPLASM OF UNSPECIFIED SITE OF LEFT FEMALE BREAST SNOMED Code(s): 130763754
[~2023-11-09 10:55] MED LIST: Pre Op ABX Message 1 EACH MISC MISCELLANE ONE
[2023-11-09] MEDS: LACTATED RINGERS 1,000 ML IV ONE ×2 (11:30→12:55)
[2023-11-09] MEDS ORDERED: ONDANSETRON 4 MG/2 ML VIAL ONE (11:42)
[2023-11-09 11:46] LABS: Basophils % (A) 1 %; Eosinophils # (A) 0.2 k/uL (0-0.7); Eosinophils % (A) 3 %; HCT 38.9 % (34.0-46.0); HGB 13.2 gm/dL (11.4-16.0); Lymphocytes % (A) 43 %; MCH 30.1 pg (25.0-35.0); MCV 88.5 fL (80.0-100.0); Mean Platelet Volume 8.7; Monocytes # (A) 0.3 k/uL (0-1.0); Monocytes % (A) 6 %; Neutrophils % (A) 45 %; Platelet Count 230 k/uL (150-450); RBC 4.39 m/uL (3.80-5.40); RDW 12.7 % (11.5-15.5); WBC 4.6 k/uL (3.8-10.6)
[2023-11-09] MEDS: ACETAMINOPHEN TAB 500 MG TAB PO PRN (11:52)
[2023-11-09] MEDS: DEXAMETHASONE SOD PHOSPHATE 4 MG/ML 1 ML VIAL IVP ONE (11:58)
[2023-11-09] MEDS: ONDANSETRON 4 MG/2 ML VIAL IVP ONE (11:58)
[2023-11-09] MEDS: HEPARIN SODIUM,PORCINE 5,000 UNIT/ML 1 ML VIAL SQ PRN (11:59)
[2023-11-09] MEDS ORDERED: PROPOFOL 10 MG/ML 20 ML VIAL IV ONE (12:57)
[2023-11-09] MEDS ORDERED: fentaNYL (PF) 50 MCG/ML 2 ML AMP ONE (12:57)
[2023-11-09] MEDS ORDERED: LIDOCAINE 1% INJ 10MG/ML (20 ML MDV) ONE (12:57)
[2023-11-09] MEDS ORDERED: MIDAZOLAM 2 MG/2 ML VIAL ONE (12:57)
[2023-11-09] MEDS: LIDOCAINE 1% INJ 10MG/ML (20 ML MDV) SQ ONE (12:57)
[2023-11-09] MEDS ORDERED: ePHEDrine 50 MG/ML 1 ML VIAL ONE (12:57)
[2023-11-09] MEDS: ceFAZolin 1,000 MG VIAL IVPB ONE (13:15)
[2023-11-09] MEDS ORDERED: NALOXONE 0.4 MG/ML 1 ML VIAL IV PRN (13:59)
[2023-11-09] MEDS ORDERED: HYDROcodone/APAP 5-325MG 1 EACH TAB PO PRN (13:59)
--- NOTE | 2023-11-09 14:04 | P.OP ---
Date of Procedure: 11/09/23 Procedure(s) Performed: PREOPERATIVE DIAGNOSIS: Breast cancer POSTOPERATIVE DIAGNOSIS: Same PROCEDURE: Port-A-Cath placement with fluoroscopic and ultrasound guidance SURGEON: Jose EBL: Minimal ANESTHESIA: General COMPLICATIONS: None OPERATIVE PROCEDURE: Patient was brought and placed on the operative table in the supine position. The patient was placed under general anesthesia at that time. The chest and neck were prepped and draped in usual sterile fashion. The ultrasound probe was used to identify the location of the right internal jugular vein. The skin was localized with lidocaine. The Seldinger needle was advanced into the IJ under ultrasound guidance. The wire was advanced through the needle under fluoroscopic guidance into the superior vena cava. A port pocket was created in the right infraclavicular location. The catheter was tunneled from the wire entrance site to the port pocket. The port was then connected to the catheter. The dilator introducer was threaded over the guidewire. The guidewire and dilator were then removed. The catheter was advanced through the introducer and introducer was then removed. The tip was seen to be in the right atrial junction via fluoroscopy. A picture of the radiograph showing the tip of the catheter was taken. Port was flushed with both saline and a Hep-Lock solution. There was good flow both in and out of the port. The port was sutured in underlying tissues using 3-0 silk sutures. The subcutaneous tissues were reapproximated using 3-0 Vicryl sutures and the skin at both locations using 4-0 Monocryl sutures. Skin glue and sterile dressings then applied. DISPOSITION: Stable to recovery room
[2023-11-09 14:10] VITALS: TEMP 97.8
[2023-11-09 14:39] VITALS: RESP 16
--- NOTE | 2023-11-09 14:44 | XR ---
EXAMINATION TYPE: XR chest 1V confirm line [facility] DATE OF EXAM: 11/09/2023 COMPARISON: NONE HISTORY: 33 year-old female check line placement TECHNIQUE: Single frontal view of the chest is obtained. FINDINGS: Right anterior chest wall injection port with catheter tip at the lower SVC. Heart normal size. Aorta and pulmonary vasculature are within normal limits. No consolidation, pneumothorax, or pl eural effusion. IMPRESSION: Right anterior chest wall injection port. Catheter tip at the lower SVC. No acute cardio pulmonary process.
--- NOTE | 2023-11-09 15:09 | FL ---
EXAMINATION TYPE: FL guided central line placemt Intraoperative/procedural fluoroscopic services were provided. Total fluoroscopy time is 4.3 seconds with a total of 1 submitted images to PACS. Please s ee the operative/procedural note for further details. DAP: 0.1215 mGym2
[2023-11-09 15:12] VITALS: PULSE 95
[2023-11-09 15:42] VITALS: BP 112/78
== END 2023-11-09 16:14 | disposition home or self-care (01) ==
LOC: OR 10:55
PROVIDERS: ATTEND Surgery
DX: Z45.2 Encounter for adjustment and management of vascular access device (principal); Z85.3 Personal history of malignant neoplasm of breast; Z87.891 Personal history of nicotine dependence
CPT/HCPCS: 85025; 77001; 36561; J2250; J1644; J1100; J2405; J0690; J2001; J3010; J1642; J2704; 81025

== ENCOUNTER → 2024-06-06 | Outpatient (CLI) | payer BC ==
--- NOTE | 2024-06-06 11:22 | USB ---
Reason for Exam: Additional evaluation requested from prior study. Patient History: Menarche at age 12. First Full-Term at age 29. Late child-bearing (after 29). Premenopausal. Patient has history of breast feeding. Breast cancer, left, age 33. 10/21/2023, Malignant US biopsy breast VAD LT on the left side. Technique: Method: Targeted. Prior Study Comparison: 10/01/2023 Bilateral MG 3D diag mammo w/cad [facility], [facility]. Findings: The lateral section of the breast of the right breast, the axilla of the right breast and the retroareolar of the right breast were scanned. There is a 0.6 x 0.4 x 0.8 cm anechoic structure with good through transmission and posterior wall enhancement at the 11:00 position 9 cm the nipple. Previous measurement 0.8 x 0.5 cm. An additional directly adjacent cyst is present measuring 0.5 x 0.2 cm, this appears to been present previously. Findings do not appear to correlate with the mammographic findings at the 11:00 position reporting 1.3 cm and 1.1 at the 6 to 7:00 position. Clinical management is recommended for these areas are not evident by ultrasound. Overall Assessment: Benign, BI-RAD 2 Management: Diagnostic Breast MRI of both breasts in 6 months. Screening Mammogram of both breasts in 4 months. A clinical breast exam by your physician is recommended on an annual basis and results should be correlated with mammographic findings. This exam should not preclude additional follow-up of suspicious palpable abnormalities. Results were given to the patient verbally at the time of exam. [facility], , 06/06/2024 10:47 AM. Electronically signed and approved by: Dilan Perez D.O. Radiologis
== END | disposition home or self-care (01) ==
LOC: RADUSWWP 09:48
PROVIDERS: ATTEND Surgery
DX: C50.412 Malignant neoplasm of upper-outer quadrant of left female breast

== ENCOUNTER → 2024-06-27 | Outpatient (CLI) | payer BC | END | disposition home or self-care (01) | LOC: LABWHC1 16:07 | PROVIDERS: ATTEND Radiology Radiation Oncology | DX: C50.412 Malignant neoplasm of upper-outer quadrant of left female breast (principal) | CPT/HCPCS: 81025 ==

== ENCOUNTER → 2024-12-21 | Outpatient (CLI) | payer BC ==
--- NOTE | 2024-12-21 08:56 | MM ---
Reason for Exam: Hx of breast cancer, conservation therapy. Patient History: Menarche at age 12. First Full-Term at age 29. Late child-bearing (after 29). Premenopausal. Patient has history of breast feeding. Breast cancer, left, age 33. 10/21/2023, Malignant US biopsy breast VAD LT on the left side. Prior Study Comparison: 10/01/2023 Bilateral MG 3D diag mammo w/cad [facility]ANG[facility], [facility]. Tissue Density: The breasts are heterogeneously dense, which may obscure small masses. Findings: Analyzed By CAD. There is surgical material and new distortion along the upper outer quadrant of the left breast suggesting interval lumpectomy scar. Mild diffuse skin thickening suggesting radiation therapy change. Six-month follow-up recommended. Scattered benign bilateral punctate calcifications are redemonstrated. On the right, central medial asymmetric density at a middle depth disperses on additional views compatible with superimposition shadow. Otherwise, no significant change. Overall Assessment: Probably benign, BI-RAD 3 Management: Diagnostic Mammogram of the left breast in 6 months. Surveillance follow-up left breast within 3 years of treatment for breast cancer. Results were given to the patient verbally at the time of exam. Patient should continue monthly self-breast exams. A clinical breast exam by your physician is recommended on an annual basis. This exam should not preclude additional follow-up of suspicious palpable abnormalities. [facility], , 12/21/2024 8:53 AM. Electronically signed and approved by: Alejandra Shahid M.D. Radiologist
== END | disposition home or self-care (01) ==
LOC: RADMAMWWP 07:35
PROVIDERS: ATTEND Surgery
DX: R92.333 Mammographic heterogeneous density, bilateral breasts (principal); Z85.3 Personal history of malignant neoplasm of breast
CPT/HCPCS: 77062; 77066